=== PATIENT | female | born 1985 | race Caucasian/White ===

== ENCOUNTER 2023-01-07 17:02 | Emergency (ER) | payer BC ==
[~2023-01-07] VITALS: Ht 175.3 cm; Wt 65.4 kg
[2023-01-07 17:10] VITALS: BP 132/93; PULSE 54; TEMP 97.7; O2SAT 98
[2023-01-07 20:05] VITALS: RESP 18
[2023-01-07] MEDS ORDERED: LORazepam 1 MG tablet PO ONE (20:15)
[2023-01-07] MEDS ORDERED: HYDR-3686 PO (21:14)
== END 2023-01-07 21:24 | disposition home or self-care (01) ==
LOC: ER 17:03
DX: F41.9 Anxiety disorder, unspecified (principal); Z79.899 Other long term (current) drug therapy
CPT/HCPCS: 99283

== ENCOUNTER 2023-09-17 18:28 | Emergency (ER) | payer BC ==
[~2023-09-17] VITALS: Ht 175.3 cm; Wt 72.7 kg
[2023-09-17 18:39] VITALS: BP 112/74; PULSE 81; RESP 16; TEMP 98.1; O2SAT 99
== END 2023-09-17 22:53 | disposition left against medical advice (07) ==
LOC: ER 18:29
DX: R07.89 Other chest pain (principal); Z53.21 Procedure and treatment not carried out due to patient leaving prior to being seen by health care provider
CPT/HCPCS: 71045; 93005; 99281

== ENCOUNTER 2024-10-01 13:54 | Emergency (ER) | payer BC ==
[~2024-10-01] VITALS: Ht 172.7 cm; Wt 72.3 kg
[2024-10-01 14:07] VITALS: TEMP 98.6
[2024-10-01 14:41] LABS: BASOPHILS % (AUTO) 0.4 % (0-1); EOSINOPHILS % (AUTO) 0.6 % (0-6); HEMOGLOBIN 12.8 g/dl (12.0-16.0); LYMPHOCYTES # (AUTO) 1.4 X10'3 (1.1-4.8); MEAN CORPUSCULAR HEMOGLOBIN 27.7 PG (27.0-31.0); MEAN CORPUSCULAR HGB CONC 32.9 g/dL (33.0-36.5); MEAN CORPUSCULAR VOLUME 84.2 FL (78-98); MEAN PLATELET VOLUME 7.9 FL (7.4-10.4); MONOCYTES # (AUTO) 0.5 X10'3 (0-0.9); MONOCYTES % (AUTO) 6.2 % (2-12); NEUTROPHILS # (AUTO) 5.4 X10'3 (1.8-7.7); NEUTROPHILS % (AUTO) 73.8 % (42-75); PLATELET COUNT 281 X10'3 (140-440); RED BLOOD COUNT 4.64 X10'6 (4.20-5.60); RED CELL DISTRIBUTION WIDTH 14.8 % (11.5-14.5); WHITE BLOOD COUNT 7.3 X10'3 (4.5-11.0)
[2024-10-01 14:52] LABS: ALANINE AMINOTRANSFERASE 51 U/L (12-78); ALBUMIN 4.1 G/DL (3.4-5.0); ALBUMIN/GLOBULIN RATIO 1.2 (1.1-1.5); ALKALINE PHOSPHATASE 71 IU/L (46-116); ANION GAP 9 (8-16); ASPARTATE AMINO TRANSFERASE 28 U/L (10-37); BILIRUBIN,TOTAL 0.4 MG/DL (0.1-1.0); BLOOD UREA NITROGEN 9 MG/DL (7-18); BUN/CREATININE RATIO 12.9 (10.0-20.0); CALCIUM 8.8 MG/DL (8.5-10.1); CHLORIDE 103 MMOL/L (99-107); GLUCOSE 112 MG/DL (70-104); LIPASE 48 U/L (16-77); POTASSIUM 3.6 MMOL/L (3.5-5.1); SODIUM 140 MMOL/L (135-145); TOTAL CARBON DIOXIDE 28.2 MMOL/L (24-32); TOTAL PROTEIN 7.4 G/DL (6.4-8.2); eCRCL 111 ML/MIN; eGFR > 90 ML/MIN
[2024-10-01 14:53] LABS: URINE HCG NEGATIVE (NEG)
[2024-10-01 15:16] LABS: BILIRUBIN,URINE NEGATIVE (Neg); CLARITY,URINE CLEAR (Clear); COLOR,URINE STRAW (Yellow); GLUCOSE, URINE NEGATIVE (Neg); KETONES,URINE NEGATIVE (Neg); LEUKOCYTE ESTERASE ,URINE NEGATIVE (Neg); NITRITES, URINE NEGATIVE (Neg); OCCULT BLOOD,URINE NEGATIVE (Neg); PROTEIN,URINE NEGATIVE (Neg); UROBILINOGEN,URINE 0.2 E.U/dL (0.2-1.0)
[2024-10-01 15:22] LABS: UA COLLECTION TYPE CLN CATCH MIDSTREAM
[2024-10-01 16:07] VITALS: BP 107/67; PULSE 66; RESP 16; O2SAT 95
== END 2024-10-01 16:08 | disposition home or self-care (01) ==
LOC: ER 13:54
DX: K59.00 Constipation, unspecified (principal)
CPT/HCPCS: 36415; 76700; 80053; 81003; 81025; 83690; 85025; 99284